=== PATIENT | female | born 1945 | race Caucasian/White ===

== ENCOUNTER 2017-01-31 08:45 | Outpatient (CLI) | payer OTHER ==
--- NOTE | 2017-01-31 09:53 | CT ---
EXAM: CT of the abdomen pelvis with contrast History: Generalized abdominal pain. Technique: Multiplanar CT images through the abdomen pelvis were obtained following administration of IV contrast Findings: Lung bases are free of consolidation. No acute osseous abnormalities. Dextroscoliosis of the lumbar spine. Moderate degenerative disc disease at L1-L2. No discrete gallstones identified by CT. Liver is enlarged. Calcified granulomas within the spleen . No focal liver lesions. Pancreas is within normal limits. Adrenal glands are unremarkable. Mil d atherosclerotic vascular calcifications of the abdominal aorta. No renal masses. No hydronephros is. The appendix is normal. No bowel obstruction. Moderate colonic stool. No free air. No bladde r wall thickening. Adnexal structures appear appropriate for patient's age. No perirectal inflammat ion. No ascites. Impression: 1. No acute intra-abdominal or pelvic process. 2. Moderate colonic stool. 3. Mild hepatomegaly.
--- NOTE | 2017-01-31 09:59 | DI ---
EXAM: Five views of the lumbar spine HISTORY: Chronic lower back pain. COMPARISON: CT abdomen pelvis 01/31/2017 same day FINDINGS: There is rightward scoliosis with the apex at L1-L2. There is no acute compression fractu re identified. There is facet arthropathy. There is 0.3 cm of retrolisthesis of L2 on L3. Soft tis sues are unremarkable. The lumbosacral junction is intact. There is contrast in the kidneys and ur eters. IMPRESSION: 1. No acute compression fracture with grade 1 retrolisthesis of L2 on L3. 2. Rightward scoliosis with the apex at L1-L2.
== END 2017-01-31 08:46 | disposition home or self-care (01) ==
LOC: RAD 08:45
PROVIDERS: ATTEND Family Medicine
DX: M54.5 Low back pain (principal); G89.29 Other chronic pain; R10.84 Generalized abdominal pain

== ENCOUNTER 2018-04-21 13:36 | Outpatient (CLI) | payer OTHER | END 2018-04-21 13:37 | disposition home or self-care (01) | LOC: CAR 13:36 | PROVIDERS: ATTEND Family Medicine | DX: H25.9 Unspecified age-related cataract (principal) | CPT/HCPCS: 93005; 93010 ==

== ENCOUNTER 2018-06-23 09:39 | Day surgery (SDC) ==
[2018-06-23] MEDS: KETOROLAC 0.5% OPTH SOL OP PRN ×4 (09:55→10:25)
[2018-06-23] MEDS: CYCLOGYL 2% OPTH OP PRN ×4 (09:55→10:05)
[2018-06-23] MEDS: TETRACAINE 0.5% UNIT-DOSE OP PRN ×4 (09:55→10:41)
[2018-06-23] MEDS: AK-DILATE 10% OPTH SOL OP PRN ×3 (09:55→10:05)
[2018-06-23] MEDS ORDERED: BETADINE OPTH PREP OP ONE (10:03)
[2018-06-23] MEDS ORDERED: DIAMOX PO STA (10:03)
[2018-06-23] MEDS ORDERED: VERSED ONE (10:39)
[2018-06-23] MEDS ORDERED: SUBLIMAZE ONE (10:39)
[2018-06-23] MEDS ORDERED: GENTAMICIN SULFATE INTRAOCULA PRN (11:20)
[2018-06-23] MEDS ORDERED: BSS WITH EPINEPHRINE OP ONE (11:20)
[2018-06-23] MEDS ORDERED: VANCOMYCIN INTRAOCULA PRN (11:20)
[2018-06-23] MEDS ORDERED: LIDOCAINE HCL 1% SDV INJ PRN (11:20)
[2018-06-23] MEDS ORDERED: SOLU-CORTEF 250 MG INTRAOCULA PRN (11:20)
[2018-06-23 11:48] VITALS: TEMP 98.6
[2018-06-23] MEDS ORDERED: DIAMOX ONE (11:50)
[2018-06-23 13:02] VITALS: BP 127/66
--- NOTE | 2018-06-24 09:23 | OP ---
PREOPERATIVE DIAGNOSIS: ADVANCED CATARACT, LEFT EYE. POSTOPERATIVE DIAGNOSIS: SAME. OPERATION PHACOEMULSIFICATION ASPIRATION OF CATARACT LEFT EYE. PLACEMENT OF POSTERIOR CHAMBER LENS. DC RENT DURING POLISHING. PHACO TIME 50.5 SECONDS AT 3% POWER. LENS MODEL PABLO [id number]. +24.5 DIOPTER D. TECHNIQUE: CLEAR CORNEA. ANESTHESIA: TOPICAL ANESTHESIA W/ANESTHESIA MONITORING. OPERATIVE REPORT: Topical anesthesia consisting of Tetracaine was applied to the cornea and Xylocaine Methyl Paraben free of MFP was injected intracamerally into the anterior chamber. The patient was then brought into the operating room , prepped and draped in the usual ophthalmic manner. A lid speculum was placed and the operating microscope was used. A paracentesis was made at the 3 o' clock position. A clear corneal incision was made just out to the limbus. The anterior chamber was entered just inside the clear cornea. Viscoelastic was injected into the anterior chamber. A capsulotomy was performed with a bent # 27 gauge needle. Phacoemulsification was then performed in the posterior chamber. After completion of the phacoemulsification, residual cortical material was aspirated with the irrigation-aspiration system. The posterior capsule was polished. Viscoelastic was injected into the anterior and posterior chambers to inflate the capsular bag. Lens were placed via an Unfolder system and stabilized in the bag. Viscoelastic was removed from the anterior chamber. The wound was checked for any leakage. The four sponges were removed from the fornix. Topical antibiotic steroid and nonsteroidal drops were also applied to the cornea. A Downey shield was applied. The patient left the operating room in good condition without any complications. ADDENDUM: The posterior capsule rent occurred during polishing. No vitreous presented. Posterior chamber lens was placed and centered in the bag. Miostat was injected after viscoelastic removal. Subcutaneous injection were given. Vancomycin 5 mg, Gentamicin 40 mg and Solu-Cortef 0.5 cc. INTRAOPERATIVE MEDICATIONS: Xylocaine Methyl Paraben Free MPF. Additional medications: Vancomycin 5 mg/Gentamicin 40 mg/Solu-Cortef 1/2 cc. MTDD
== END 2018-06-23 12:00 | disposition home or self-care (01) ==
LOC: SURG 09:39
PROVIDERS: ATTEND Ophthalmology
DX: Z96.1 Presence of intraocular lens (principal); H25.9 Unspecified age-related cataract

== ENCOUNTER 2021-08-09 18:32 | Observation (INO) ==
--- NOTE | 2021-08-09 18:46 | ED.PDOC ---
General ED Provider: Dr. JANNETH RODRIGUEZ Chief Complaint: Shortness of Air Stated Complaint: SOA for a few days, some cough, no chest pain, dx a few months ago with COPD, has a home neb, no O2, she has a pulse ox and it was reading in mid to upper 80's, claims that she stopped smoking last month. Time Seen by Provider: 08/09/21 18:46 Mode of Arrival: Walk-In Information Source: Patient Exam Limitations: No limitations Primary Care Provider: CHRISTOPHER ELMORE Nursing and Triage Documentation Reviewed and Agree: Yes Does patient meet sepsis criteria?: No System Inflammatory Response Syndrome: Not Applicable Sepsis Protocol: For patient's 13 years and over: Temp is 96.8 and below OR 101 and greater Pulse >90 BPM Resp >20/minute Acutely Altered Mental Status Are patient's symptoms suggestive of a new infection, such as: -Pneumonia -Skin, Soft Tissue -Endocarditis -UTI -Bone, Joint Infection -Implantable Device -Acute Abdominal Infection -Wound Infection -Meningitis -Blood Stream Catheter Infection -Unknown Respiratory Complaint Exam Shortness of Air Complaint/Exam Onset/Duration: few d Symptoms Are: Still present Timing: Constant Initial Severity: Moderate Current Severity: Moderate Character: Reports Dyspnea at rest Aggravating: Reports Deep breaths Alleviating: Reports Bronchodilators Associated Signs and Symptoms: Reports Cough and Wheezing; Denies Chest pain, F ever, Calf pain or Calf swelling History of Healthcare-Acquired Pneumonia: No Cardiac Risk Factors: Reports None Pseudomonas Risk Factors: Reports None Tuberculosis Risk Factors: Reports None Home Oxygen Use: No Recent Stress Test: No Recent Echo/LV Function: No Respiratory Distress: Moderate Stridor Present: No Subcutaneous Emphysema: No Accessory Muscle Use: No Retractions: Not Present Diminished Breath Sounds: Yes Prolonged Expiratory Phase: Yes Unable to Speak Full Sentences: No Fatigue: Yes Leg Swelling: No Rosales's Sign Present: No Grunting Respirations: No Kussmaul Respirations: No Review of Systems Review Of Systems Constitutional: Reports No symptoms Eyes: Reports No symptoms Ears, Nose, Mouth, Throat: Reports No symptoms Respiratory: Reports Cough and Short of air Cardiac: Reports No symptoms GI: Reports No symptoms : Reports No symptoms Musculoskeletal: Reports No symptoms Skin: Reports No symptoms Neurological: Reports No symptoms Endocrine: Reports No symptoms Hematologic/Lymphatic: Reports No symptoms All Other Systems: Reviewed and Negative [facility] Medical History (Updated 08/09/21 @ 23:17 by NIRMALA SAN RN) COPD (chronic obstructive pulmonary disease) Family History (Updated 08/09/21 @ 23:20 by NIRMALA SAN RN) Mother Pancreatic cancer SISTER Breast cancer Social History (Updated 08/09/21 @ 23:25 by NIRMALA SAN RN) Smoking and tobacco status: Former smoker Tobacco: How many years used: 57 How long ago did patient quit smokin/22 Alcohol intake: never Yudi/rastafarian: SIKH Housing: house Lives independently: Yes 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 Number of children: 5 Number of grandchildren: 12 What type of physical activity do you participate in?: bicycling Surgical History (Updated 08/09/21 @ 23:17 by NIRMALA SAN RN) History of tubal ligation Female Reproductive History Menstrual Hx Tubal Ligation: Yes Physical Exam Physical Exam Appearance: Reports Ill-appearing Ill-appearing: Moderate Pain Distress: None Eyes: Reports JAYSHREE ENT: Reports Oropharynx normal Neck: Supple Respiratory: Reports Airway patent, Breath sounds diminished, Rhonchi and Wheezes Cardiovascular: Reports RRR GI/: Reports Soft Musculoskeletal: Reports Normal strength Skin: Reports Warm and Dry Neurological: Reports Sensation intact, Motor intact and Alert Psychiatric: Reports Affect appropriate Interpretation Radiology Interpretation Radiology Interpretation By: Radiologist Radiology Results: No acute changes Exam Interpreted: Portable CXR Xray Comments: COPD EKG Interpretation Time of EKG #1: 18:45 Rate: Normal Ectopy: None [place]: [place] ST Segment: Other Interpretation: NSSTW changes Physician Notification Case Discussed Physician Notified: Dr Gurdeep Rachel Comments: OK's admit to Dr. Elmore. Critical Care Note Critical Care Note Total Critical Care Time (mins): 0 Course Course Hematology/Chemistry: 08/10/21 05:02 08/10/21 05:02 Orders, Labs, Meds: Lab Review 08/09/21 08/09/21 08/09/21 18:45 19:06 19:06 WBC 9.28 RBC 4.67 Hgb 14.0 Hct 43.8 MCV 93.8 MCH 30.0 MCHC 32.0 RDW Coeff of [place] 12.7 Plt Count 177 Immature Gran % (Auto) 0.3 Neut % (Auto) 71.7 Lymph % (Auto) 16.8 [place] % (Auto) 6.8 Eos % (Auto) 4.2 Baso % (Auto) 0.2 Neut # (Auto) 6.7 Lymph # (Auto) 1.6 [place] # (Auto) 0.6 Eos # (Auto) 0.4 Baso # (Auto) 0.0 Immature Gran # (Auto) 0.0 Puncture Site Rbrach Base Excess 6.2 H O2 Saturation 89.1 L ABG pH 7.43 ABG pCO2 46.0 H ABG pO2 55.0 L* ABG HCO3 30.5 H ABG Total CO2 31.9 H Yvon Test + Hemoglobin 1.0 Oxyhemoglobin 88.1 L Carboxyhemoglobin 2.5 H Total Hemoglobin 14.7 Sodium 140.3 Potassium 4.14 Chloride 101.8 Carbon Dioxide 33.1 H Anion Gap 9.54 BUN 15.9 Creatinine 0.79 Estimated GFR (MDRD) 71.00 BUN/Creatinine Ratio 20.12 Glucose 103.7 Calcium 9.05 Total Bilirubin 0.35 AST 27.0 ALT 19.4 Alkaline Phosphatase 80.0 Troponin I < 0.012 NT-Pro-B Natriuret Pep Total Protein 6.81 Albumin 4.33 Globulin 2.48 Albumin/Globulin Ratio 1.74 Urine Color Urine Clarity Urine pH Ur Specific [place] Urine Protein Urine Glucose (UA) Urine Ketones Urine Blood Urine Nitrite Urine Bilirubin Urine Urobilinogen Ur Leukocyte Esterase Adenovirus (PCR) B. pertussis DNA (PCR) B.parapertussis DNA PCR C. pneumoniae DNA (PCR) Coronavirus OC43 (PCR) Coronavirus HKU1 (PCR) Coronavirus 229E (PCR) Coronavirus NL63 (PCR) Human Metapneumovir PCR Influenza Type A (PCR) Influ A Molecular Assay Influenza B (RT-PCR) Influ B Molecular Assay M. pneumoniae (PCR) Parainfluenza 1 (PCR) Parainfluenza 2 (PCR) Parainfluenza 3 (PCR) Parainfluenza 4 (PCR) RSV (PCR) Entero/Rhino (PCR) SARS-CoV-2 (PCR) 08/09/21 08/09/21 08/09/21 19:06 19:30 19:30 WBC RBC Hgb Hct MCV MCH MCHC RDW Coeff of [place] Plt Count Immature Gran % (Auto) Neut % (Auto) Lymph % (Auto) [place] % (Auto) Eos % (Auto) Baso % (Auto) Neut # (Auto) Lymph # (Auto) [place] # (Auto) Eos # (Auto) Baso # (Auto) Immature Gran # (Auto) Puncture Site Base Excess O2 Saturation ABG pH ABG pCO2 ABG pO2 ABG HCO3 ABG Total CO2 Yvon Test Hemoglobin Oxyhemoglobin Carboxyhemoglobin Total Hemoglobin Sodium Potassium Chloride Carbon Dioxide Anion Gap BUN Creatinine Estimated GFR (MDRD) BUN/Creatinine Ratio Glucose Calcium Total Bilirubin AST ALT Alkaline Phosphatase Troponin I NT-Pro-B Natriuret Pep 24.200 Total Protein Albumin Globulin Albumin/Globulin Ratio Urine Color Urine Clarity Urine pH Ur Specific [place] Urine Protein Urine Glucose (UA) Urine Ketones Urine Blood Urine Nitrite Urine Bilirubin Urine Urobilinogen Ur Leukocyte Esterase Adenovirus (PCR) Not detected B. pertussis DNA (PCR) Not detected B.parapertussis DNA PCR Not detected C. pneumoniae DNA (PCR) Not detected Coronavirus OC43 (PCR) Not detected Coronavirus HKU1 (PCR) Not detected Coronavirus 229E (PCR) Not detected Coronavirus NL63 (PCR) Not detected Human Metapneumovir PCR Not detected Influenza Type A (PCR) Not detected Influ A Molecular Assay Negative by naat Influenza B (RT-PCR) Not detected Influ B Molecular Assay Negative by naat M. pneumoniae (PCR) Not detected Parainfluenza 1 (PCR) Not detected Parainfluenza 2 (PCR) Not detected Parainfluenza 3 (PCR) Not detected Parainfluenza 4 (PCR) Not detected RSV (PCR) Not detected Entero/Rhino (PCR) Not detected SARS-CoV-2 (PCR) Not detected 08/09/21 19:35 WBC RBC Hgb Hct MCV MCH MCHC RDW Coeff of [place] Plt Count Immature Gran % (Auto) Neut % (Auto) Lymph % (Auto) [place] % (Auto) Eos % (Auto) Baso % (Auto) Neut # (Auto) Lymph # (Auto) [place] # (Auto) Eos # (Auto) Baso # (Auto) Immature Gran # (Auto) Puncture Site Base Excess O2 Saturation ABG pH ABG pCO2 ABG pO2 ABG HCO3 ABG Total CO2 Yvon Test Hemoglobin Oxyhemoglobin Carboxyhemoglobin Total Hemoglobin Sodium Potassium Chloride Carbon Dioxide Anion Gap BUN Creatinine Estimated GFR (MDRD) BUN/Creatinine Ratio Glucose Calcium Total Bilirubin AST ALT Alkaline Phosphatase Troponin I NT-Pro-B Natriuret Pep Total Protein Albumin Globulin Albumin/Globulin Ratio Urine Color Yellow Urine Clarity Clear Urine pH 7.0 Ur Specific [place] 1.015 Urine Protein Negative Urine Glucose (UA) Negative Urine Ketones Negative Urine Blood Negative Urine Nitrite Negative Urine Bilirubin Negative Urine Urobilinogen 0.2 Ur Leukocyte Esterase Negative Adenovirus (PCR) B. pertussis DNA (PCR) B.parapertussis DNA PCR C. pneumoniae DNA (PCR) Coronavirus OC43 (PCR) Coronavirus HKU1 (PCR) Coronavirus 229E (PCR) Coronavirus NL63 (PCR) Human Metapneumovir PCR Influenza Type A (PCR) Influ A Molecular Assay Influenza B (RT-PCR) Influ B Molecular Assay M. pneumoniae (PCR) Parainfluenza 1 (PCR) Parainfluenza 2 (PCR) Parainfluenza 3 (PCR) Parainfluenza 4 (PCR) RSV (PCR) Entero/Rhino (PCR) SARS-CoV-2 (PCR) Orders Category Date Time Status ABG DRAW REQUEST Stat CARDIO 08/09/21 18:54 Completed EKG-(ED ONLY) Stat CARDIO 08/09/21 18:54 Completed OXYGEN Routine CARDIO 08/09/21 21:59 Active ACTIVITY .Up ad Calli CARE 08/09/21 21:58 Active INTAKE & OUTPUT Q8HR CARE 08/09/21 21:58 Active IP: INSERT SALINE LOCK ONCE CARE 08/09/21 21:58 Active VITAL SIGNS Q8HR CARE 08/09/21 21:58 Completed REGULAR DIET DIETARY 08/09/21 Breakfast Ordered ABG COOX Stat LAB 08/09/21 18:45 Completed BASIC METABOLIC PANEL DAILY@0600 LAB 08/10/21 05:02 Completed BASIC METABOLIC PANEL DAILY@0600 LAB 08/11/21 06:00 Ordered CBC W/ AUTO DIFF DAILY@0600 LAB 08/10/21 05:02 Completed CBC W/ AUTO DIFF DAILY@0600 LAB 08/11/21 06:00 Ordered CBC W/ AUTO DIFF Stat LAB 08/09/21 19:06 Completed COMPREHENSIVE METABOLIC PANEL Stat LAB 08/09/21 19:06 Completed FLU A/B MOLECULAR Stat LAB 08/09/21 19:30 Completed NT-PROBNP Stat LAB 08/09/21 19:06 Completed TROPONIN I Stat LAB 08/09/21 19:06 Completed URINALYSIS C & S IF INDICATED Stat LAB 08/09/21 19:35 Completed Azithromycin Inj [Zithromax] 500 mg MEDS 08/09/21 22:00 Active 0.9 % Sodium Chloride [Sodium Chloride] 250 ml IV DAILY Ceftriaxone/D5w 1 gm Premix [Rocephin 1 gm/50 ml D5w] MEDS 08/09/21 22:00 Active 1 gm in 50 ml IV DAILY Enoxaparin Sodium [Lovenox] MEDS 08/09/21 22:00 Active 40 mg SUBCUT DAILY Ipratropium/Albuterol Neb [Duoneb] MEDS 08/09/21 19:00 Discontinued 3 ml NEB ONCE ONE Methylprednisolone Sod Succ/Pf [Solu-Medrol 40 mg] MEDS 08/09/21 22:30 Dis continued 40 mg IVP TID RESUSCITATION STATUS Routine OTHERS 08/09/21 21:58 Completed CHEST, 1V AP ONLY Stat RADS 08/09/21 18:57 Completed Medications Generic Name Dose Route Start Last Admin Trade Name Freq PRN Reason Stop Dose Admin Albuterol/Ipratropium 3 ml 08/10/21 00:38 08/10/21 04:50 Ipratropium/Albuterol Vial.Neb NEB 3 ml RTQ6H JOSÉ MIGUEL Administration Enoxaparin Sodium 40 mg 08/09/21 22:00 08/09/21 23:47 Enoxaparin Sodium 40 Mg/0.4 Ml Syr SUBCUT 40 mg DAILY JOSÉ MIGUEL Administration CEFTRIAXONE/D5W 1 GM PREMIX 1 gm in 50 mls @ 75 mls/hr 08/09/21 22:00 08/10/21 00:11 Rocephin 1 Gm/50 Ml D5w IV 08/12/21 21:59 75 mls/hr DAILY JOSÉ MIGUEL Administration Azithromycin 500 mg/ Sodium 250 mls @ 125 mls/hr 08/09/21 22:00 08/09/21 22:40 Chloride IV 08/12/21 21:59 125 mls/hr DAILY JOSÉ MIGUEL Administration Methylprednisolone Sodium Succinate 40 mg 08/10/21 06:00 08/10/21 06:01 Methylprednisolone Sod Succ/Pf 40 Mg/Ml Vial IVP 40 mg Q8HR JOSÉ MIGUEL Administration Sodium Chloride 1 syr 08/10/21 13:00 0.9% Sodium Chloride 10 Ml Disp.Syrin IVF Q8HR JOSÉ MIGUEL Discontinued Medications Generic Name Dose Route Start Last Admin Trade Name Freq PRN Reason Stop Dose Admin Albuterol/Ipratropium 3 ml 08/09/21 19:00 08/09/21 19:10 Ipratropium/Albuterol Vial.Neb NEB 08/09/21 19:01 3 ml ONCE ONE Administration Methylprednisolone Sodium Succinate 40 mg 08/09/21 22:30 08/09/21 22:41 Methylprednisolone Sod Succ/Pf 40 Mg/Ml Vial IVP 40 mg TID JOSÉ MIGUEL Administration Vital Signs: Temp Pulse Resp BP Pulse Ox 08/09/21 18:36 98.8 F 104 H 24 176/94 H 88 L Discharge Plan Discharge Patient Disposition: PLACED OBSERVATION ED Provider: JANNETH RODRIGUEZ Condition: Good Physician Progress Note: [COPD exac, she is needing O2 at 2 L to keep sat. over 90. Place in obs, O2, steroids, abx, neb. ]
[2021-08-09] MEDS ORDERED: DUONEB NEB ONE (19:00)
[2021-08-09 19:11] LABS: BASOPHILS % (AUTO) 0.2 % (0.0-3.0); EOSINOPHILS # (AUTO) 0.4 K/ul (0.0-0.7); EOSINOPHILS % (AUTO) 4.2 % (0.0-7.0); HEMATOCRIT 43.8 % (37.0-47.0); IMMATURE GRANULOCYTE % (AUTO) 0.3 % (0.0-5.0); LYMPHOCYTES # (AUTO) 1.6 K/uL (0.60-3.4); LYMPHOCYTES % (AUTO) 16.8 (10.0-50.0); MEAN CORPUSCULAR VOLUME 93.8 fl (81.0-99.0); MONOCYTES # (AUTO) 0.6 K/uL (0.4-2.0); MONOCYTES % (AUTO) 6.8 (0-10); NEUTROPHILS # (AUTO) 6.7 K/ul (2.0-6.9); NEUTROPHILS % (AUTO) 71.7 % (42.2-75.2); PLATELET COUNT 177 10^3/uL (140-440); RDW COEFFICIENT OF VARIATION 12.7 % (11.6-14.8); RED BLOOD COUNT 4.67 10^6/ul (4.20-5.40); WHITE BLOOD COUNT 9.28 K/ul (4.6-10.2)
[2021-08-09 19:23] LABS: ALANINE AMINOTRANSFERASE 19.4 U/L (0-35); ALBUMIN 4.33 g/dL (3.5-5.0); BILIRUBIN,TOTAL 0.35 mg/dL (0.2-1.3); BLOOD UREA NITROGEN 15.9 mg/dL (7-17); CALCIUM 9.05 mg/dL (8.4-10.2); CARBON DIOXIDE 33.1 mmol/L (22-30.0); CHLORIDE 101.8 mmol/L (98-107); CREATININE 0.79 mg/dL (0.60-1.30); GLUCOSE 103.7 mg/dL (74-106); POTASSIUM 4.14 mmol/L (3.5-5.1); SODIUM 140.3 mmol/L (134.5-145); TOTAL PROTEIN 6.81 g/dL (6.3-8.2)
[2021-08-09 19:35] LABS: TROPONIN I < 0.012 ng/ml (0.0000-0.120)
[2021-08-09 19:51] LABS: BORDETELLA PARAPERTUSSIS (PCR) NOT DETECTED (NOT DETECT); BORDETELLA PERTUSSIS (PCR) NOT DETECTED (NOT DETECT); CHLAMYDIA PNEUMONIAE (PCR) NOT DETECTED (NOT DETECT); CORONAVIRUS 229E (PCR) NOT DETECTED (NOT DETECT); CORONAVIRUS HKU1 (PCR) NOT DETECTED (NOT DETECT); CORONAVIRUS NL63 (PCR) NOT DETECTED (NOT DETECT); CORONAVIRUS OC43 (PCR) NOT DETECTED (NOT DETECT); HUMAN METAPNEUMOVIRUS (PCR) NOT DETECTED (NOT DETECT); HUMAN RHINOVIRUS/ENTEROV (PCR) NOT DETECTED (NOT DETECT); INFLUENZA B (PCR) NOT DETECTED (NOT DETECT); MYCOPLASMA PNEUMONIAE (PCR) NOT DETECTED (NOT DETECT); PARAINFLUENZA VIRUS 1 (PCR) NOT DETECTED (NOT DETECT); PARAINFLUENZA VIRUS 2 (PCR) NOT DETECTED (NOT DETECT); PARAINFLUENZA VIRUS 3 (PCR) NOT DETECTED (NOT DETECT); PARAINFLUENZA VIRUS 4 (PCR) NOT DETECTED (NOT DETECT); RESPIRATORY SYNCYTIAL V (PCR) NOT DETECTED (NOT DETECT); SARS_COV_2 (PCR) NOT DETECTED (NOT DETECT)
--- NOTE | 2021-08-09 19:55 | DI ---
EXAM: Single view of the chest. History: Short of breath Findings: Heart is borderline enlarged. No consolidation. No pleural fluid and no pneumothorax. N o acute osseous abnormalities. Atherosclerotic vascular calcifications. Scoliosis. Impression: No acute cardiopulmonary process
[2021-08-09 20:07] LABS: MOLECULAR FLU A NEGATIVE BY NAAT (NEGATIVE); MOLECULAR FLU B NEGATIVE BY NAAT (NEGATIVE)
[2021-08-09 20:11] LABS: BILIRUBIN,URINE Negative (NEGATIVE); CLARITY,URINE Clear (CLEAR); COLOR,URINE Yellow (YELLOW); GLUCOSE, URINE (UA) Negative (NEGATIVE); KETONES,URINE Negative (NEGATIVE); LEUKOCYTE ESTERASE ,URINE Negative (NEGATIVE); NITRITE,URINE Negative (NEGATIVE); PROTEIN,URINE Negative (NEGATIVE); URINE, BLOOD Negative (NEGATIVE); UROBILINOGEN,URINE 0.2 (0.2)
[2021-08-09 20:41] LABS: ADENOVIRUS (PCR) NOT DETECTED (NOT DETECT)
[2021-08-09 21:11] LABS: ABG PH 7.43 (7.35-7.45)
[2021-08-09 21:12] LABS: BEecf 6.2 (-2.0-3.0); COHb 2.5 (0.5-1.5); HCO3 30.5 (21-28); TCO2 31.9 (19-24); sO2 89.1 % (94-98); tHb 14.7 g/dl (11.7-17.4)
[2021-08-09 21:13] LABS: ABG O2 HGB 88.1 % (95-100)
[2021-08-09] MEDS ORDERED: ROCEPHIN 1 GM/50 ML D5W 1 GM/50 ML BAG IV SCH (22:00)
[2021-08-09] MEDS ORDERED: ZITHROMAX 500 MG in SODIUM CHLORIDE 250 ML IV SCH (22:00)
[2021-08-09] MEDS ORDERED: SOLU-MEDROL 40 MG IVP SCH (22:30)
[2021-08-09] MEDS: LOVENOX SUBCUT SCH (23:47)
[2021-08-09 23:52] VITALS: BMI 29.0
[2021-08-10] MEDS: DUONEB NEB SCH ×6 (01:00→23:30)
[2021-08-10 05:24] LABS: BASOPHILS % (AUTO) 0.1 % (0.0-3.0); EOSINOPHILS % (AUTO) 0.1 % (0.0-7.0); HEMATOCRIT 43.1 % (37.0-47.0); HEMOGLOBIN 13.9 g/dl (12.0-16.0); IMMATURE GRANULOCYTE % (AUTO) 0.4 % (0.0-5.0); LYMPHOCYTES # (AUTO) 0.7 K/uL (0.60-3.4); LYMPHOCYTES % (AUTO) 8.2 (10.0-50.0); MEAN CORPUSCULAR HEMOGLOBIN 30.1 pg (27.0-31.0); MEAN CORPUSCULAR HGB CONC 32.3 (31.8-35.4); MEAN CORPUSCULAR VOLUME 93.3 fl (81.0-99.0); MONOCYTES # (AUTO) 0.1 K/uL (0.4-2.0); NEUTROPHILS # (AUTO) 7.1 K/ul (2.0-6.9); NEUTROPHILS % (AUTO) 90.2 % (42.2-75.2); PLATELET COUNT 167 10^3/uL (140-440); RDW COEFFICIENT OF VARIATION 12.5 % (11.6-14.8); RED BLOOD COUNT 4.62 10^6/ul (4.20-5.40); WHITE BLOOD COUNT 7.89 K/ul (4.6-10.2)
[2021-08-10 05:36] LABS: BLOOD UREA NITROGEN 15.8 mg/dL (7-17); CALCIUM 8.86 mg/dL (8.4-10.2); CARBON DIOXIDE 30.1 mmol/L (22-30.0); CHLORIDE 105.2 mmol/L (98-107); CREATININE 0.67 mg/dL (0.60-1.30); GLUCOSE 135.2 mg/dL (74-106); POTASSIUM 4.47 mmol/L (3.5-5.1); SODIUM 140.2 mmol/L (134.5-145)
[2021-08-10] MEDS: SOLU-MEDROL 40 MG IVP SCH ×3 (06:01→20:30)
[2021-08-10] MEDS: LOVENOX SUBCUT SCH (08:56)
[2021-08-10] MEDS: SYMBICORT 160-4.5 MCG INHALER IH SCH ×2 (17:29→20:31)
[2021-08-10] MEDS ORDERED: ROCEPHIN 1 GM/50 ML D5W 1 GM/50 ML BAG IV SCH (21:00)
[2021-08-10] MEDS ORDERED: ZITHROMAX 500 MG in SODIUM CHLORIDE 250 ML IV SCH (21:00)
[2021-08-10] MEDS: MEVACOR PO SCH (21:45)
[2021-08-11] MEDS: DUONEB NEB SCH ×4 (04:40→23:05)
[2021-08-11] MEDS: SOLU-MEDROL 40 MG IVP SCH ×2 (05:22→13:59)
[2021-08-11 05:29] LABS: BASOPHILS % (AUTO) 0.1 % (0.0-3.0); HEMATOCRIT 43.6 % (37.0-47.0); HEMOGLOBIN 14.2 g/dl (12.0-16.0); IMMATURE GRANULOCYTE # (AUTO) 0.1 (0.0-1.0); IMMATURE GRANULOCYTE % (AUTO) 0.7 % (0.0-5.0); LYMPHOCYTES # (AUTO) 1.1 K/uL (0.60-3.4); LYMPHOCYTES % (AUTO) 6.6 (10.0-50.0); MEAN CORPUSCULAR HEMOGLOBIN 30.1 pg (27.0-31.0); MEAN CORPUSCULAR HGB CONC 32.6 (31.8-35.4); MEAN CORPUSCULAR VOLUME 92.6 fl (81.0-99.0); MONOCYTES # (AUTO) 0.7 K/uL (0.4-2.0); MONOCYTES % (AUTO) 3.9 (0-10); NEUTROPHILS # (AUTO) 14.9 K/ul (2.0-6.9); NEUTROPHILS % (AUTO) 88.7 % (42.2-75.2); PLATELET COUNT 211 10^3/uL (140-440); RDW COEFFICIENT OF VARIATION 12.6 % (11.6-14.8); RED BLOOD COUNT 4.71 10^6/ul (4.20-5.40)
[2021-08-11 05:35] LABS: WHITE BLOOD COUNT 16.82 K/ul (4.6-10.2)
[2021-08-11 05:41] LABS: BLOOD UREA NITROGEN 15.9 mg/dL (7-17); CALCIUM 9.16 mg/dL (8.4-10.2); CARBON DIOXIDE 27.9 mmol/L (22-30.0); CHLORIDE 106.7 mmol/L (98-107); CREATININE 0.56 mg/dL (0.60-1.30); GLUCOSE 123.7 mg/dL (74-106); POTASSIUM 4.46 mmol/L (3.5-5.1); SODIUM 140.5 mmol/L (134.5-145)
[2021-08-11] MEDS: LOVENOX SUBCUT SCH (08:43)
[2021-08-11] MEDS: SYMBICORT 160-4.5 MCG INHALER IH SCH ×2 (08:48→21:10)
[2021-08-11] MEDS: MEVACOR PO SCH (21:10)
[2021-08-11] MEDS: OMNICEF PO SCH (21:10)
[2021-08-11] MEDS ORDERED: CEPACOL SORE THROAT LOZENGE MUCOUSMEMB PRN (22:07)
[2021-08-12] MEDS: DUONEB NEB SCH ×2 (04:44→11:09)
[2021-08-12] MEDS ORDERED: PREDNISONE PO SCH (08:30)
[2021-08-12] MEDS: SYMBICORT 160-4.5 MCG INHALER IH SCH (08:58)
[2021-08-12] MEDS: OMNICEF PO SCH (08:58)
[2021-08-12] MEDS: LOVENOX SUBCUT SCH (08:59)
[2021-08-12 10:27] VITALS: BP 131/81; TEMP 97.6
--- NOTE | 2021-09-25 13:47 | HP ---
CHIEF COMPLAINT: " I am so short of breath" DISCUSSION: This is s a 76 year old lady with a history of COPD presented to the emergency department with shortness of air. Over the past few days she has had increase in shortness of breath, cough. She presented to the emergency department with increasing shortness of breath with sats at home reading in the 80's. She is a previous smoker having quit recently. She was seen by Dr. Greenberg in the emergency department because of her hypoxia. She was requiring oxygen to keep her sats over 90 so the patient was admitted to my services and observation initially with steroids, oxygen and antibiotics. PAST MEDICAL HISTORY: MEDICATIONS: DUONEBS Lovastatin ALLERGIES: No known drug allergies PAST MEDICAL HISTORY: COPD Hyperlipidemia PAST SURGICAL HISTORY: History of tubal ligation SOCIAL HISTORY: She is a previous smoker. Denies any alcohol. FAMILY HISTORY: Pancreatic cancer in mother Breast cancer in sister. REVIEW OF SYSTEMS: No headaches, visual changes, tinnitus, chest pain, shortness of breath, hemoptysis, abdominal pain, blood in the stool, urinary symptoms or seizures. PHYSICAL EXAMINATION: V/S: Temperature 97.6, pulse 86, respiratory rate 20, blood pressure 131/81. HEENT: Pupils are round. NECK: Supple. CHEST: Decreased breath sounds. CARDIOVASCULAR: Regular rate and rhythm. ABDOMEN: Soft, nontender. EXTREMITIES: Distal extremities without cyanosis or edema. ASSESSMENT: 1. Acute respiratory failure 2. COPD PLAN: 1. Steroids 2. Antibiotics 3. Bronchodilators 4. Please see orders. MTDD
--- NOTE | 2021-09-25 14:15 | PN ---
DATE OF VISIT: 08/11/21 SUBJECTIVE: Pat is feeling much better although she is her oxygen saturation does drop with any kind of ambulation. She anticipate that she is probably going to require home oxygen. She denies any chest pain, hemoptysis. There are no nursing staff concerns. OBJECTIVE: Temperature 96, pulse 70, respiratory 18 REVIEW OF SYSTEMS: Denies headaches, visual changes, tinnitus or chest pain. Positive for shortness of breath with exertion. No hemoptysis, abdominal pain, blood in the stool, urinary symptoms or seizures. PHYSICAL EXAMINATION: HEENT: Pupils are round. NECK: Supple. CHEST: Decreased breath sounds bilaterally. CARDIOVASCULAR: Regular rate and rhythm. ABDOMEN: Soft, nontender. EXTREMITIES: Distal extremities without cyanosis or edema. IMPRESSION: 1. Acute hypoxic respiratory failure due to #2 2. COPD PLAN: 1. We will go perform ambulatory oximetry to see if she qualifies for home oxygen 2. Please see orders. MTDD
--- NOTE | 2021-09-25 14:31 | DS ---
PRINCIPAL DIAGNOSIS: 1. Acute hypoxic respiratory failure secondary to #2 2. COPD DISCUSSION: This is a 76 year old lady with a history of COPD presented to the emergency department with hypoxia with shortness of breath. She has had a mild cough, no fever and no chills. She was seen in the emergency department and admitted to my services. CLINICAL COURSE: Symptotically she felt better with steroids, bronchodilators however she still was requiring oxygen and to this point we got her set up for home oxygen upon discharge. She will be discharged with steroids, bronchodilators and antibiotics. I am going to see her in the office in one week. We anticipate a probable referral to pulmonary for further evaluation. PRAFUL
== END 2021-08-12 12:20 | disposition home or self-care (01) ==
LOC: ED 18:32 → INTOOBSV 22:05 → MEDSURG A 22:05
PROVIDERS: ADMIT Family Medicine; ATTEND Family Medicine
DX: Z20.822 Contact with and (suspected) exposure to COVID-19; J96.01 Acute respiratory failure with hypoxia; J44.1 Chronic obstructive pulmonary disease with (acute) exacerbation; Z99.81 Dependence on supplemental oxygen